=== PATIENT | male | born 1930 | race American Indian/Alaskan Native ===

== ENCOUNTER 2017-12-08 08:55 | Inpatient (IN) | payer MEDICARE, OTHER ==
[~2017-12-08] VITALS: Ht 180.3 cm; Wt 73.6 kg
[~2017-12-08 08:55] MED LIST: AMLO5TAB4 PO; ASPI-611 PO; CHOL400T14 PO; FLO0.4C PO; FOLI1TAB16 PO; GLIP5TAB3 PO; HYDR-569 PO; OXYB5TAB11 PO
[2017-12-08] MEDS ORDERED: morphine 4 MG/ML inj SYRINge IV PRN ×3 (09:55→12:55)
[2017-12-08 10:14] LABS: BASOPHILS % (AUTO) 0.2 % (0-1); EOSINOPHILS # (AUTO) 0.1 X10'3 (0-0.9); EOSINOPHILS % (AUTO) 1.3 % (0-6); HEMATOCRIT 35.3 % (42.0-52.0); HEMOGLOBIN 11.8 g/dl (14.0-17.9); LYMPHOCYTES # (AUTO) 0.7 X10'3 (1.1-4.8); LYMPHOCYTES % (AUTO) 15.7 % (21-51); MEAN CORPUSCULAR HEMOGLOBIN 30.6 PG (27.0-31.0); MEAN CORPUSCULAR HGB CONC 33.3 % (33.0-36.5); MEAN PLATELET VOLUME 7.4 FL (7.4-10.4); MONOCYTES # (AUTO) 0.6 X10'3 (0-0.9); MONOCYTES % (AUTO) 12.7 % (2-12); NEUTROPHILS # (AUTO) 3.3 X10'3 (1.8-7.7); NEUTROPHILS % (AUTO) 70.1 % (42-75); PLATELET COUNT 118 X10'3 (140-440); RED BLOOD COUNT 3.83 X10'6 (4.70-6.10); RED CELL DISTRIBUTION WIDTH 14.8 % (11.5-14.5); WHITE BLOOD COUNT 4.7 X10'3 (4.5-11.0)
[2017-12-08 10:28] LABS: ALANINE AMINOTRANSFERASE 12 U/L (12-78); ALBUMIN 2.8 G/DL (3.4-5.0); ALBUMIN/GLOBULIN RATIO 0.8 (1.1-1.5); ALKALINE PHOSPHATASE 123 IU/L (46-116); ANION GAP 4 (8-16); ASPARTATE AMINO TRANSFERASE 10 U/L (10-37); BILIRUBIN,TOTAL 0.4 MG/DL (0.1-1.0); BLOOD UREA NITROGEN 46 MG/DL (7-18); BUN/CREATININE RATIO 10.7 (5.4-32.0); CALCIUM 8.5 MG/DL (8.5-10.1); CHLORIDE 100 MMOL/L (99-107); CREATININE 4.29 MG/DL (0.60-1.10); GLUCOSE 243 MG/DL (70-104); POTASSIUM 4.9 MMOL/L (3.5-5.1); SODIUM 135 MMOL/L (135-145); TOTAL PROTEIN 6.3 G/DL (6.4-8.2); eGFR 13 ML/MIN
[2017-12-08] MEDS ORDERED: ondansetron/PF 4mg/2ml inj IV PRN (12:55)
[2017-12-08] MEDS ORDERED: magnesium hydroxide 30ml (MOM) UD suspension PO PRN (12:55)
[2017-12-08] MEDS ORDERED: acetaminophen 325mg tablet PO PRN (12:55)
[2017-12-08] MEDS ORDERED: normal saline 1000ml 250 ML IV PRN (12:56)
[2017-12-08] MEDS ORDERED: LIDOcaine 1% (10mg/ml) 2ml vial SQ ONE (13:00)
[2017-12-08] MEDS ORDERED: heparin 1,000 units/ml 10ml inj IV ONE (13:00)
[2017-12-08 13:31] LABS: CLARITY,URINE CLEAR (Clear); COLOR,URINE YELLOW (Yellow); GLUCOSE, URINE 500 mg/dl (Neg); KETONES,URINE NEGATIVE (Neg); LEUKOCYTE ESTERASE ,URINE NEGATIVE (Neg); NITRITES, URINE NEGATIVE (Neg); OCCULT BLOOD,URINE SMALL (Neg); PH,URINE 7.5 (4.8-8.0); PROTEIN,URINE >=300 mg/dl (Neg); UROBILINOGEN,URINE 0.2 E.U/dL (0.2-1.0)
[2017-12-08 13:48] LABS: UA COLLECTION TYPE CLN CATCH MIDSTREAM
[2017-12-08 13:49] LABS: BACTERIA,URINE NONE SEEN /HPF (Neg); RBC,URINE 0-2 /HPF (0-2); SQUAMOUS EPITHELIAL CELL,UR FEW /LPF (FEW); WBC,URINE NONE SEEN /HPF (0-4)
[2017-12-08 16:00] VITALS: BP 155/81
[2017-12-08 18:00] VITALS: BP 168/91
[2017-12-08] MEDS: docusate sod 100mg capsule PO SCH (20:12)
[2017-12-08] MEDS: heparin, porcine 5000 units/ml vial SQ SCH (20:12)
[2017-12-08] MEDS: HYDROcodone/acetaminophen 10/325mg tab PO PRN (20:14)
[2017-12-08 22:00] VITALS: BP 156/83
[2017-12-09] MEDS: HYDROcodone/acetaminophen 10/325mg tab PO PRN ×3 (02:43→12:51)
[2017-12-09 05:55] LABS: BASOPHILS % (AUTO) 0.4 % (0-1); EOSINOPHILS # (AUTO) 0.1 X10'3 (0-0.9); EOSINOPHILS % (AUTO) 2.5 % (0-6); HEMATOCRIT 37.9 % (42.0-52.0); HEMOGLOBIN 12.4 g/dl (14.0-17.9); LYMPHOCYTES % (AUTO) 25.2 % (21-51); MEAN CORPUSCULAR HEMOGLOBIN 30.3 PG (27.0-31.0); MEAN CORPUSCULAR HGB CONC 32.8 % (33.0-36.5); MEAN CORPUSCULAR VOLUME 92.4 FL (78-98); MEAN PLATELET VOLUME 7.8 FL (7.4-10.4); MONOCYTES # (AUTO) 0.5 X10'3 (0-0.9); NEUTROPHILS # (AUTO) 2.4 X10'3 (1.8-7.7); NEUTROPHILS % (AUTO) 58.9 % (42-75); PLATELET COUNT 128 X10'3 (140-440); RED CELL DISTRIBUTION WIDTH 14.7 % (11.5-14.5); WHITE BLOOD COUNT 4.1 X10'3 (4.5-11.0)
[2017-12-09 06:00] VITALS: BP 160/78
[2017-12-09 06:36] LABS: ALANINE AMINOTRANSFERASE 14 U/L (12-78); ALBUMIN 2.7 G/DL (3.4-5.0); ALBUMIN/GLOBULIN RATIO 0.7 (1.1-1.5); ALKALINE PHOSPHATASE 119 IU/L (46-116); ANION GAP 5 (8-16); ASPARTATE AMINO TRANSFERASE 10 U/L (10-37); BILIRUBIN,TOTAL 0.3 MG/DL (0.1-1.0); BLOOD UREA NITROGEN 21 MG/DL (7-18); BUN/CREATININE RATIO 7.4 (5.4-32.0); CALCIUM 8.4 MG/DL (8.5-10.1); CHLORIDE 99 MMOL/L (99-107); CREATININE 2.85 MG/DL (0.60-1.10); GLUCOSE 232 MG/DL (70-104); MAGNESIUM 1.9 MG/DL (1.5-2.4); PHOSPHORUS 3.7 MG/DL (2.3-4.5); POTASSIUM 4.6 MMOL/L (3.5-5.1); SODIUM 136 MMOL/L (135-145); TOTAL PROTEIN 6.6 G/DL (6.4-8.2); eGFR 21 ML/MIN
[2017-12-09] MEDS: heparin, porcine 5000 units/ml vial SQ SCH (07:16)
[2017-12-09] MEDS: docusate sod 100mg capsule PO SCH (07:16)
[2017-12-09] MEDS ORDERED: dextrose 50%-water 50ml dispensing syringe IV PRN ×2 (09:40)
[2017-12-09] MEDS ORDERED: MESSAGE TO PHARMACY PO ONE (09:40)
[2017-12-09] MEDS ORDERED: dextrose ORAL solution 15 GM/59 ML bottle PO PRN ×2 (09:40)
[2017-12-09] MEDS ORDERED: insulin Lispro (HumaLOG) vial - multi-dose SQ SCH (09:40)
[2017-12-09] MEDS ORDERED: glucagon, human recombinant 1mg kit SUBCUT PRN (09:40)
[2017-12-09 10:00] VITALS: BP 152/68
[2017-12-09] MEDS ORDERED: AMLO5TAB PO (13:37)
[2017-12-09] MEDS ORDERED: insulin glargine (Lantus) pen - multi-dose SQ SCH (21:00)
== END 2017-12-09 15:40 | disposition home or self-care (01) | DRG 604 ==
LOC: ER 08:56 → ED HOLD 12:51 → ORTHO 4S 16:00
PROVIDERS: ADMIT Internal Medicine Critical Care Medicine; ATTEND Internal Medicine Critical Care Medicine
PROC: 5A1D70Z Performance of Urinary Filtration, Intermittent, Less than 6 Hours Per Day (ICD-10-PCS; principal; 2017-12-08)
DX: S70.01XA Contusion of right hip, initial encounter (principal); N18.6 End stage renal disease; I12.0 Hypertensive chronic kidney disease with stage 5 chronic kidney disease or end stage renal disease; E11.22 Type 2 diabetes mellitus with diabetic chronic kidney disease; F03.90 Unspecified dementia, unspecified severity, without behavioral disturbance, psychotic disturbance, mood disturbance, and anxiety; W01.0XXA Fall on same level from slipping, tripping and stumbling without subsequent striking against object, initial encounter; I25.10 Atherosclerotic heart disease of native coronary artery without angina pectoris; Z91.15 Patient's noncompliance with renal dialysis; I25.2 Old myocardial infarction; Z95.1 Presence of aortocoronary bypass graft; Z99.2 Dependence on renal dialysis; Z95.0 Presence of cardiac pacemaker; Z88.8 Allergy status to other drugs, medicaments and biological substances; Z79.82 Long term (current) use of aspirin; Z79.899 Other long term (current) drug therapy; Z79.84 Long term (current) use of oral hypoglycemic drugs; Z87.891 Personal history of nicotine dependence; Y93.89 Activity, other specified; Y92.89 Other specified places as the place of occurrence of the external cause; Y99.8 Other external cause status
CPT/HCPCS: 36415; 73502; 73700; 80053; 81001; 82948; 83036; 83735; 84100; 85025; 87070; 93005; 97116; 97161; A6212; A6402; A6449; G0257; J1644; J1815; J3490; J7030

== ENCOUNTER 2017-12-12 19:01 | Emergency (ER) | payer MEDICARE, OTHER ==
[~2017-12-12] VITALS: Ht 181.6 cm; Wt 73.2 kg
[~2017-12-12 19:01] MED LIST changes: +AMLO5TAB PO; -AMLO5TAB4 PO
[2017-12-12] MEDS ORDERED: acetaminophen 325mg tablet PO STA (19:10)
[2017-12-12 19:45] LABS: BASOPHILS % (AUTO) 0 % (0-1); EOSINOPHILS % (AUTO) 0 % (0-6); HEMATOCRIT 35.7 % (42.0-52.0); HEMOGLOBIN 11.8 g/dl (14.0-17.9); LYMPHOCYTES # (AUTO) 0.2 X10'3 (1.1-4.8); LYMPHOCYTES % (AUTO) 3.2 % (21-51); MEAN CORPUSCULAR HEMOGLOBIN 30.3 PG (27.0-31.0); MEAN CORPUSCULAR VOLUME 91.8 FL (78-98); MEAN PLATELET VOLUME 7.8 FL (7.4-10.4); MONOCYTES # (AUTO) 0.5 X10'3 (0-0.9); MONOCYTES % (AUTO) 7.4 % (2-12); NEUTROPHILS # (AUTO) 5.5 X10'3 (1.8-7.7); NEUTROPHILS % (AUTO) 89.4 % (42-75); PLATELET COUNT 151 X10'3 (140-440); RED BLOOD COUNT 3.89 X10'6 (4.70-6.10); RED CELL DISTRIBUTION WIDTH 14.1 % (11.5-14.5); WHITE BLOOD COUNT 6.2 X10'3 (4.5-11.0)
[2017-12-12 19:54] LABS: PROTHROMBIN TIME 10.1 SECONDS (9.0-12.0)
[2017-12-12 20:00] LABS: ALANINE AMINOTRANSFERASE 15 U/L (12-78); ALBUMIN 2.6 G/DL (3.4-5.0); ALBUMIN/GLOBULIN RATIO 0.7 (1.1-1.5); ALKALINE PHOSPHATASE 113 IU/L (46-116); ANION GAP 3 (8-16); ASPARTATE AMINO TRANSFERASE 17 U/L (10-37); BILIRUBIN,TOTAL 0.6 MG/DL (0.1-1.0); BLOOD UREA NITROGEN 22 MG/DL (7-18); BUN/CREATININE RATIO 8.9 (5.4-32.0); CALCIUM 8.5 MG/DL (8.5-10.1); CHLORIDE 99 MMOL/L (99-107); CREATININE 2.48 MG/DL (0.60-1.10); GLUCOSE 203 MG/DL (70-104); SODIUM 135 MMOL/L (135-145); TOTAL CARBON DIOXIDE 32.7 MMOL/L (24-32); TOTAL PROTEIN 6.4 G/DL (6.4-8.2); eGFR 25 ML/MIN
[2017-12-12] MEDS ORDERED: ONDA4TAB9 SL (20:32)
[2017-12-12 20:39] VITALS: BP 158/76
== END 2017-12-12 20:41 | disposition home or self-care (01) ==
LOC: ER 19:01
DX: E86.0 Dehydration (principal); N18.6 End stage renal disease; F03.90 Unspecified dementia, unspecified severity, without behavioral disturbance, psychotic disturbance, mood disturbance, and anxiety; I25.10 Atherosclerotic heart disease of native coronary artery without angina pectoris; I25.2 Old myocardial infarction; E11.22 Type 2 diabetes mellitus with diabetic chronic kidney disease; Z99.2 Dependence on renal dialysis; Z95.1 Presence of aortocoronary bypass graft; Z88.8 Allergy status to other drugs, medicaments and biological substances; Z79.82 Long term (current) use of aspirin; Z79.899 Other long term (current) drug therapy
CPT/HCPCS: 36415; 70450; 71045; 80053; 82948; 83605; 85025; 85610; 87040; 93005; 99285

== ENCOUNTER 2018-09-20 06:13 | Day surgery (SDC) | payer MEDICARE, OTHER ==
[2018-09-20] VITALS (9 sets, daily range): BP systolic 134–147; BP diastolic 62–68
[~2018-09-20] VITALS: Ht 180.3 cm; Wt 72.3 kg
[~2018-09-20 06:13] MED LIST changes: +HYDR-4383 PO; -HYDR-569 PO
[2018-09-20] MEDS ORDERED: normal saline 1000ml 1,000 ML IV PRN (06:40)
[2018-09-20] MEDS ORDERED: GABA-530 PO (06:47)
[2018-09-20] MEDS ORDERED: FINA5TAB11 PO (06:47)
[2018-09-20] MEDS ORDERED: MULT-933 PO (06:47)
[2018-09-20] MEDS ORDERED: ATOR10TA87 PO (06:47)
[2018-09-20 07:10] LABS: BASOPHILS % (AUTO) 0.3 % (0-1); EOSINOPHILS # (AUTO) 0.1 X10'3 (0-0.9); EOSINOPHILS % (AUTO) 2.1 % (0-6); HEMATOCRIT 35.1 % (42.0-52.0); HEMOGLOBIN 11.6 g/dl (14.0-17.9); LYMPHOCYTES % (AUTO) 16.4 % (21-51); MEAN CORPUSCULAR HEMOGLOBIN 29.5 PG (27.0-31.0); MEAN CORPUSCULAR VOLUME 89.4 FL (78-98); MEAN PLATELET VOLUME 7.8 FL (7.4-10.4); MONOCYTES # (AUTO) 0.6 X10'3 (0-0.9); MONOCYTES % (AUTO) 10.1 % (2-12); NEUTROPHILS # (AUTO) 4.5 X10'3 (1.8-7.7); NEUTROPHILS % (AUTO) 71.1 % (42-75); PLATELET COUNT 147 X10'3 (140-440); RED BLOOD COUNT 3.93 X10'6 (4.70-6.10); RED CELL DISTRIBUTION WIDTH 15.3 % (11.5-14.5); WHITE BLOOD COUNT 6.3 X10'3 (4.5-11.0)
[2018-09-20 07:17] LABS: ALBUMIN 3.5 G/DL (3.4-5.0); ANION GAP 7 (8-16); BLOOD UREA NITROGEN 55 MG/DL (7-18); BUN/CREATININE RATIO 12.4 (5.4-32.0); CALCIUM 9.3 MG/DL (8.5-10.1); CHLORIDE 95 MMOL/L (99-107); CREATININE 4.42 MG/DL (0.60-1.10); GLUCOSE 174 MG/DL (70-104); POTASSIUM 4.5 MMOL/L (3.5-5.1); SODIUM 134 MMOL/L (135-145); TOTAL CARBON DIOXIDE 32.3 MMOL/L (24-32); eGFR 13 ML/MIN
[2018-09-20] MEDS ORDERED: normal saline 1000ml 1,000 ML IV SCH (08:14)
[2018-09-20] MEDS ORDERED: fentaNYL/PF 50MCG/1 ML 2ML syringe IV PRN (08:15)
[2018-09-20] MEDS ORDERED: LIDOcaine 1%/PF 5ML 10 MG/ML VIAL SQ ONE (08:15)
[2018-09-20] MEDS ORDERED: iohexol 300mg/ml 100ml inj. ONE (08:35)
[2018-09-20] MEDS ORDERED: LIDOcaine 1%/PF 5ML 10 MG/ML VIAL ONE (08:35)
[2018-09-20] MEDS ORDERED: heparin 1,000 UNITS/NS 500ml 500 ML ONE ×2 (08:35→09:47)
[2018-09-20] MEDS ORDERED: fentaNYL/PF 50MCG/1 ML 2ML syringe ONE ×2 (08:36→09:20)
== END 2018-09-20 12:48 | disposition home or self-care (01) ==
LOC: SSTAY O 06:13
PROVIDERS: ATTEND Radiology Vascular & Interventional Radiology
DX: T82.858A Stenosis of other vascular prosthetic devices, implants and grafts, initial encounter (principal); I12.0 Hypertensive chronic kidney disease with stage 5 chronic kidney disease or end stage renal disease; E11.22 Type 2 diabetes mellitus with diabetic chronic kidney disease; N18.6 End stage renal disease; Y83.8 Other surgical procedures as the cause of abnormal reaction of the patient, or of later complication, without mention of misadventure at the time of the procedure; Z87.891 Personal history of nicotine dependence; Z95.5 Presence of coronary angioplasty implant and graft; Z96.651 Presence of right artificial knee joint; Z98.49 Cataract extraction status, unspecified eye; Z88.8 Allergy status to other drugs, medicaments and biological substances; Z91.048 Other nonmedicinal substance allergy status; Z79.82 Long term (current) use of aspirin; Z79.899 Other long term (current) drug therapy
CPT/HCPCS: 36415; 36901; 36907; 80048; 85025; C1725; C1769; C1894; J1644; J2001; J3010; J7030; Q9967; 99153

== ENCOUNTER 2018-12-12 19:24 | Inpatient (IN) | payer MEDICARE, OTHER ==
[~2018-12-12] VITALS: Ht 180.3 cm; Wt 121.9 kg
[~2018-12-12 19:24] MED LIST changes: -AMLO5TAB PO; -ASPI-611 PO; +ATOR10TA87 PO; +FINA5TAB11 PO; +GABA-530 PO; -GLIP5TAB3 PO; +MULT-933 PO; -OXYB5TAB11 PO
--- NOTE | 2018-12-12 19:50 | NUR ---
Patient encouraged to provide urine sample at this time, patient willing to attempt, at bedside.
--- NOTE | 2018-12-12 20:17 | NUR ---
Patient still unable to provide urine sample, willing to try once again, at bedside.
[2018-12-12 20:30] LABS: BASOPHILS % (AUTO) 0.3 % (0-1); EOSINOPHILS # (AUTO) 0.2 X10'3 (0-0.9); HEMATOCRIT 37.2 % (42.0-52.0); LYMPHOCYTES # (AUTO) 0.7 X10'3 (1.1-4.8); MEAN CORPUSCULAR HEMOGLOBIN 28.6 PG (27.0-31.0); MEAN CORPUSCULAR HGB CONC 32.2 g/dL (33.0-36.5); MEAN CORPUSCULAR VOLUME 88.9 FL (78-98); MEAN PLATELET VOLUME 7.9 FL (7.4-10.4); MONOCYTES # (AUTO) 0.6 X10'3 (0-0.9); MONOCYTES % (AUTO) 15.2 % (2-12); NEUTROPHILS # (AUTO) 2.5 X10'3 (1.8-7.7); NEUTROPHILS % (AUTO) 63.5 % (42-75); PLATELET COUNT 125 X10'3 (140-440); RED BLOOD COUNT 4.19 X10'6 (4.70-6.10); RED CELL DISTRIBUTION WIDTH 15.2 % (11.5-14.5)
[2018-12-12 20:42] LABS: PARTIAL THROMBOPLASTIN TIME 30 SECONDS (22-32)
[2018-12-12 20:44] LABS: ALANINE AMINOTRANSFERASE 17 U/L (12-78); ALBUMIN/GLOBULIN RATIO 0.8 (1.1-1.5); ALKALINE PHOSPHATASE 137 IU/L (46-116); ANION GAP 6 (8-16); ASPARTATE AMINO TRANSFERASE 16 U/L (10-37); BILIRUBIN,TOTAL 0.4 MG/DL (0.1-1.0); BLOOD UREA NITROGEN 53 MG/DL (7-18); BUN/CREATININE RATIO 11.4 (5.4-32.0); CALCIUM 8.7 MG/DL (8.5-10.1); CHLORIDE 95 MMOL/L (99-107); CREATININE 4.63 MG/DL (0.60-1.10); GLUCOSE 135 MG/DL (70-104); POTASSIUM 4.8 MMOL/L (3.5-5.1); SODIUM 132 MMOL/L (135-145); TOTAL CARBON DIOXIDE 30.8 MMOL/L (24-32); eGFR 12 ML/MIN
--- NOTE | 2018-12-12 21:38 | NUR ---
US tech at bedside.
--- NOTE | 2018-12-12 21:40 | NUR ---
Patient refusing straight cath r/t pain and swelling to penis and testicles, at bedside.
[2018-12-12 22:15] LABS: PLATELET ESTIMATE DECREASED; TOTAL CELLS COUNTED 100
[2018-12-12] MEDS ORDERED: ondansetron/PF 4mg/2ml inj IV PRN (23:05)
[2018-12-12] MEDS ORDERED: acetaminophen 325mg tablet PO PRN ×2 (23:05)
[2018-12-12 23:50] VITALS: BP 158/71
--- NOTE | 2018-12-12 23:50 | NUR ---
Patient arrived in room PCU 3023 from the ED on a gurney with all of his belongings. is at the bedside. Pt ambulated to the bed with assistance. VS stable. No C/O pain. Telemetry applied. Oriented to room, bed, and call light. I have received report from Brenda RESENDIZ and had the opportunity to ask questions and assume patient care. Will continue to monitor.
--- NOTE | 2018-12-13 00:25 | NUR ---
Pt stated she will bring in his medication list in the am. Med reconciliation will be completed then. Addendum: 12/13/18 at 0126 by Briana Camp RN Juan F brought in home med list. Reviewed and reported changes
[2018-12-13] MEDS ORDERED: AMLO-314 PO (01:23)
[2018-12-13] MEDS ORDERED: HYDR-4383 PO ×2 (01:23→09:52)
[2018-12-13 03:00] VITALS: BP 147/66
[2018-12-13 05:14] LABS: BASOPHILS % (AUTO) 0.6 % (0-1); EOSINOPHILS # (AUTO) 0.2 X10'3 (0-0.9); EOSINOPHILS % (AUTO) 4.6 % (0-6); HEMATOCRIT 35.2 % (42.0-52.0); HEMOGLOBIN 11.7 g/dl (14.0-17.9); LYMPHOCYTES # (AUTO) 1.1 X10'3 (1.1-4.8); LYMPHOCYTES % (AUTO) 26.6 % (21-51); MEAN CORPUSCULAR HEMOGLOBIN 29.6 PG (27.0-31.0); MEAN CORPUSCULAR HGB CONC 33.3 g/dL (33.0-36.5); MEAN CORPUSCULAR VOLUME 88.9 FL (78-98); MEAN PLATELET VOLUME 7.9 FL (7.4-10.4); MONOCYTES # (AUTO) 0.6 X10'3 (0-0.9); MONOCYTES % (AUTO) 15.3 % (2-12); NEUTROPHILS # (AUTO) 2.2 X10'3 (1.8-7.7); NEUTROPHILS % (AUTO) 52.9 % (42-75); PLATELET COUNT 112 X10'3 (140-440); RED BLOOD COUNT 3.96 X10'6 (4.70-6.10); RED CELL DISTRIBUTION WIDTH 15.5 % (11.5-14.5); WHITE BLOOD COUNT 4.1 X10'3 (4.5-11.0)
[2018-12-13 05:38] LABS: ALANINE AMINOTRANSFERASE 14 U/L (12-78); ALBUMIN 2.5 G/DL (3.4-5.0); ALBUMIN/GLOBULIN RATIO 0.7 (1.1-1.5); ALKALINE PHOSPHATASE 117 IU/L (46-116); ANION GAP 8 (8-16); ASPARTATE AMINO TRANSFERASE 9 U/L (10-37); BILIRUBIN,TOTAL 0.4 MG/DL (0.1-1.0); BLOOD UREA NITROGEN 53 MG/DL (7-18); BUN/CREATININE RATIO 11.2 (5.4-32.0); CALCIUM 8.5 MG/DL (8.5-10.1); CHLORIDE 96 MMOL/L (99-107); CREATININE 4.74 MG/DL (0.60-1.10); GLUCOSE 115 MG/DL (70-104); MAGNESIUM 1.8 MG/DL (1.5-2.4); PHOSPHORUS 3.6 MG/DL (2.3-4.5); POTASSIUM 4.5 MMOL/L (3.5-5.1); SODIUM 133 MMOL/L (135-145); TOTAL CARBON DIOXIDE 28.9 MMOL/L (24-32); TOTAL PROTEIN 6.1 G/DL (6.4-8.2); eGFR 12 ML/MIN
--- NOTE | 2018-12-13 06:24 | NUR ---
Problems reprioritized. Patient report given, questions answered & plan of care reviewed with Estefany RESENDIZ.
--- NOTE | 2018-12-13 06:30 | NUR ---
Patient in room PCU 3023. I have received report from ASTRID Fox and had the opportunity to ask questions and assume patient care.
[2018-12-13 07:00] VITALS: BP 168/79
[2018-12-13 08:37] LABS: PLATELET ESTIMATE DECREASED; TOTAL CELLS COUNTED 100
[2018-12-13] MEDS ORDERED: LIDOcaine 1% (10mg/ml) 2ml vial SQ ONE (08:40)
[2018-12-13] MEDS ORDERED: heparin 1,000 units/ml 10ml inj IV ONE (08:40)
[2018-12-13] MEDS ORDERED: normal saline 1000ml 250 ML IV PRN (08:40)
[2018-12-13] MEDS: heparin, porcine 5000 units/ml vial SQ SCH ×2 (09:28→20:05)
[2018-12-13] MEDS ORDERED: AMLO5TAB PO (09:52)
[2018-12-13] MEDS ORDERED: MEGE400O2 PO (09:54)
[2018-12-13] MEDS ORDERED: LACT10SO PO (09:56)
[2018-12-13] MEDS ORDERED: DILT-35 PO (09:56)
[2018-12-13] MEDS ORDERED: FINA5TAB11 PO (09:56)
[2018-12-13] MEDS ORDERED: OXYB5TAB16 PO (09:56)
[2018-12-13 11:00] VITALS: BP 161/76
[2018-12-13] MEDS ORDERED: HYDROcodone/acetaminophen 5mg/325mg tablet PO PRN (11:10)
[2018-12-13 13:12] LABS: CLARITY,URINE CLEAR (Clear); COLOR,URINE STRAW (Yellow); GLUCOSE, URINE 250 mg/dl (Neg); KETONES,URINE NEGATIVE (Neg); LEUKOCYTE ESTERASE ,URINE NEGATIVE (Neg); NITRITES, URINE NEGATIVE (Neg); OCCULT BLOOD,URINE TRACE-INTACT (Neg); PROTEIN,URINE >=300 mg/dl (Neg); UROBILINOGEN,URINE 0.2 E.U/dL (0.2-1.0)
[2018-12-13 13:18] LABS: UA COLLECTION TYPE NON-SPECIFIED
[2018-12-13 13:21] LABS: BACTERIA,URINE FEW /HPF (Neg); RBC,URINE 0-2 /HPF (0-2); SQUAMOUS EPITHELIAL CELL,UR FEW /LPF (FEW); WBC,URINE 0-4 /HPF (0-4)
[2018-12-13] MEDS: cholecalciferol (vitamin D) 400 unit tablet PO SCH ×2 (13:41→20:06)
[2018-12-13 15:00] VITALS: BP 149/76
[2018-12-13 18:00] VITALS: BP 150/81
--- NOTE | 2018-12-13 18:29 | NUR ---
Problems reprioritized. Patient report given, questions answered & plan of care reviewed with ASTRID Fox and ASTRID Rodriguez[].
--- NOTE | 2018-12-13 18:42 | NUR ---
Patient in room PCU 3023. I have received report from Estefany RESENDIZ and had the opportunity to ask questions and assume patient care.
[2018-12-13] MEDS: gabapentin 100mg capsule PO SCH (20:04)
[2018-12-13] MEDS ORDERED: tamsulosin 0.4mg capsule PO SCH (21:00)
[2018-12-13] MEDS ORDERED: lactulose 20gm/30ml cup PO SCH (21:00)
[2018-12-13 22:00] VITALS: BP 157/77
[2018-12-14 02:00] VITALS: BP 153/75
[2018-12-14 06:00] VITALS: BP 157/72
--- NOTE | 2018-12-14 06:00 | NUR ---
Patient in room PCU 3023. I have received report from Dominique RN and ASTRID Rodriguez and had the opportunity to ask questions and assume patient care.
--- NOTE | 2018-12-14 06:11 | NUR ---
[place] documentation: I have reviewed and agree with all interventions, assessments performed and documented by Jennifer RESENDIZ . Medication Administration: For this medication-pass time frame, all medication were reviewed, dispensed, administered and documented per hospital policy by Jennifer RESENDIZ .
--- NOTE | 2018-12-14 06:14 | NUR ---
Problems reprioritized. Patient report given, questions answered & plan of care reviewed with Magda RESENDIZ.
[2018-12-14 06:38] LABS: BASOPHILS % (AUTO) 0.6 % (0-1); EOSINOPHILS # (AUTO) 0.1 X10'3 (0-0.9); EOSINOPHILS % (AUTO) 3.1 % (0-6); HEMATOCRIT 34.6 % (42.0-52.0); HEMOGLOBIN 11.5 g/dl (14.0-17.9); LYMPHOCYTES # (AUTO) 0.7 X10'3 (1.1-4.8); LYMPHOCYTES % (AUTO) 19.1 % (21-51); MEAN CORPUSCULAR HGB CONC 33.3 g/dL (33.0-36.5); MEAN CORPUSCULAR VOLUME 87.3 FL (78-98); MONOCYTES # (AUTO) 0.5 X10'3 (0-0.9); MONOCYTES % (AUTO) 14.2 % (2-12); NEUTROPHILS # (AUTO) 2.4 X10'3 (1.8-7.7); PLATELET COUNT 120 X10'3 (140-440); RED BLOOD COUNT 3.97 X10'6 (4.70-6.10); RED CELL DISTRIBUTION WIDTH 15.3 % (11.5-14.5); WHITE BLOOD COUNT 3.8 X10'3 (4.5-11.0)
[2018-12-14 07:19] LABS: ALANINE AMINOTRANSFERASE 17 U/L (12-78); ALBUMIN 2.4 G/DL (3.4-5.0); ALBUMIN/GLOBULIN RATIO 0.7 (1.1-1.5); ALKALINE PHOSPHATASE 115 IU/L (46-116); ANION GAP 7 (8-16); ASPARTATE AMINO TRANSFERASE 13 U/L (10-37); BILIRUBIN,TOTAL 0.4 MG/DL (0.1-1.0); BLOOD UREA NITROGEN 24 MG/DL (7-18); BUN/CREATININE RATIO 7.7 (5.4-32.0); CALCIUM 8.2 MG/DL (8.5-10.1); CHLORIDE 102 MMOL/L (99-107); CREATININE 3.11 MG/DL (0.60-1.10); GLUCOSE 93 MG/DL (70-104); MAGNESIUM 1.8 MG/DL (1.5-2.4); PHOSPHORUS 3.1 MG/DL (2.3-4.5); POTASSIUM 4.2 MMOL/L (3.5-5.1); SODIUM 139 MMOL/L (135-145); TOTAL CARBON DIOXIDE 29.6 MMOL/L (24-32); TOTAL PROTEIN 5.9 G/DL (6.4-8.2); eGFR 19 ML/MIN
[2018-12-14] MEDS ORDERED: oxybutynin 5mg tablet PO SCH (08:00)
[2018-12-14] MEDS ORDERED: atorvastatin 10mg tablet PO SCH (08:00)
[2018-12-14] MEDS ORDERED: megestrol acetate 400mg/10ml UD oral suspension PO SCH (08:00)
[2018-12-14] MEDS ORDERED: finasteride 5mg tablet PO SCH (08:00)
[2018-12-14] MEDS ORDERED: amLODIPine 5mg tablet PO SCH (08:00)
[2018-12-14] MEDS ORDERED: folic acid 1mg tablet PO SCH (08:00)
[2018-12-14] MEDS ORDERED: multivitamins, therapeutics tablet PO SCH (08:00)
[2018-12-14] MEDS ORDERED: diltiazem CD 120mg capsule (once-daily) PO SCH (08:00)
[2018-12-14] MEDS: heparin, porcine 5000 units/ml vial SQ SCH (08:05)
[2018-12-14] MEDS: cholecalciferol (vitamin D) 400 unit tablet PO SCH (08:06)
[2018-12-14] MEDS: gabapentin 100mg capsule PO SCH (08:06)
--- NOTE | 2018-12-14 13:52 | NUR ---
Pt discharged at this time in stable condition. No IV present. spray blender removed. Belongings with patient and his to private vehicle. Pt off unit.
== END 2018-12-14 13:51 | disposition home health service (06) | DRG 640 ==
LOC: ER 19:25 → PCU 3S 23:55 → CMPBEDREQ 12-13 00:17
PROVIDERS: ADMIT Internal Medicine Critical Care Medicine; ATTEND Internal Medicine Critical Care Medicine
PROC: 5A1D70Z Performance of Urinary Filtration, Intermittent, Less than 6 Hours Per Day (ICD-10-PCS; principal; 2018-12-13)
DX: E87.70 Fluid overload, unspecified (principal); N18.6 End stage renal disease; F03.90 Unspecified dementia, unspecified severity, without behavioral disturbance, psychotic disturbance, mood disturbance, and anxiety; I25.10 Atherosclerotic heart disease of native coronary artery without angina pectoris; E11.22 Type 2 diabetes mellitus with diabetic chronic kidney disease; N50.89 Other specified disorders of the male genital organs; Z99.2 Dependence on renal dialysis; Z91.048 Other nonmedicinal substance allergy status; Z95.0 Presence of cardiac pacemaker; I25.2 Old myocardial infarction; Z87.891 Personal history of nicotine dependence; Z95.1 Presence of aortocoronary bypass graft
CPT/HCPCS: 36415; 71045; 76870; 80053; 81001; 83036; 83735; 83880; 84100; 84484; 85025; 85610; 85730; 87081; 93971; 99285; G0257; G0378; J1644; J2001